=== PATIENT | female | born 1975 | race Caucasian/White ===

== ENCOUNTER 2022-02-13 08:31 | Emergency (ER) | payer BC ==
[2022-02-13] MEDS ORDERED: ASPIRIN CHEW 81 MG TABLET PO STA (08:42)
[2022-02-13] MEDS ORDERED: ACETAMINOPHEN 500 MG TABLET PO STA (08:44)
--- NOTE | 2022-02-13 08:44 | ED Physician Documentation ---
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 She does have a history of gastric bypass, elevated blood pressure without a formal diagnosis of hypertension, and no history of coronary disease. She presents with chest pain that awoke her from sleep at 3 AM this morning. Its a sharp pain at the upper end of the sternum that does not radiate. Worse with deep breathing and it is associated with shortness of breath. It does not worsen with exertion. There is no associated calf pain, pedal edema, association with eating, or recent travel. She is never had this before. Review of Systems Ten Systems: 10 systems reviewed and negative Constitutional: denies: Fever, Chills Cardiac: reports: Chest pain / pressure. denies: Palpitations Respiratory: reports: Dyspnea. denies: Cough PD PAST MEDICAL HISTORY - Present Medications Home Medications: Ambulatory Orders Medication Instructions Recorded Confirmed Omeprazole 40 mg PO DAILY #30 cap 02/13/22 - Allergies Allergies/Adverse Reactions: Allergies Allergy/AdvReac Type Severity Reaction Status Date / Time No Known Drug Allergies Allergy Verified 02/13/22 08:46 PD ED PE NORMAL - Vitals Vital signs reviewed: Yes - General General: Alert and oriented X 3, Other (She appears uncomfortable especially with deep breathing.) - HEENT HEENT: PERRL, EOMI - Neck Neck: Supple, no meningeal sign, No bony TTP - Cardiac Cardiac: RRR, No murmur - Respiratory Respiratory: No respiratory distress, Clear bilaterally - Abdomen Abdomen: Non tender - Derm Derm: Normal color, Warm and dry - Extremities Extremities: No edema, No calf tenderness / cord - Neuro Neuro: Alert and oriented X 3, Normal speech Results - Vitals Vitals: Vital Signs - 24 hr 02/13/22 02/13/22 02/13/22 08:33 08:48 09:18 Temperature 36.8 C Heart Rate 71 66 68 Respiratory 17 19 15 Rate Blood Pressure 149/98 H 141/88 H 120/86 H O2 Saturation 99 98 97 02/13/22 02/13/22 02/13/22 09:30 10:00 10:30 Temperature Heart Rate 62 68 63 Respiratory 18 15 15 Rate Blood Pressure 153/98 H 142/87 H 142/87 H O2 Saturation 98 98 96 Oxygen O2 Source Room air - EKG (time done) 0834 Rate: Rate (enter#) Rhythm: NSR Norton: RAD Intervals: Normal CO QRS: Low voltage Ischemia: Normal ST segments - Labs Labs: Laboratory Tests 02/13/22 02/13/22 02/13/22 08:52 08:52 08:52 WBC 6.8 RBC 4.61 Hgb 14.0 Hct 40.5 MCV 87.9 MCH 30.4 MCHC 34.6 RDW 14.8 Plt Count 345 MPV 10.3 Neut # (Auto) 3.1 Lymph # (Auto) 2.6 Richardson # (Auto) 0.5 Eos # (Auto) 0.5 Baso # (Auto) 0.1 Absolute Nucleated RBC 0.00 Nucleated RBC % 0.0 D-Dimer < 200.0 L Sodium 138 Potassium 4.0 Chloride 104 Carbon Dioxide 23 Anion Gap 11.0 BUN 16 Creatinine 0.4 Estimated GFR (MDRD) 170 Glucose 93 Calcium 8.6 Total Bilirubin 0.3 AST 28 ALT 31 Alkaline Phosphatase 48 Troponin I High Sens Total Protein 7.5 Albumin 3.8 Globulin 3.7 Albumin/Globulin Ratio 1.0 Lipase 46 02/13/22 08:52 WBC RBC Hgb Hct MCV MCH MCHC RDW Plt Count MPV Neut # (Auto) Lymph # (Auto) Richardson # (Auto) Eos # (Auto) Baso # (Auto) Absolute Nucleated RBC Nucleated RBC % D-Dimer Sodium Potassium Chloride Carbon Dioxide Anion Gap BUN Creatinine Estimated GFR (MDRD) Glucose Calcium Total Bilirubin AST ALT Alkaline Phosphatase Troponin I High Sens 2.6 Total Protein Albumin Globulin Albumin/Globulin Ratio Lipase - Rads (name of study) 1v cxr Radiology: EMP read contemporaneously (NAD) PD MEDICAL DECISION MAKING - ED course ED course: 46-year-old woman with history of gastric bypass presents with chest pain having awoken her from sleep at 3 AM this morning. She has an ancillary complaint for the last 2 years she has intermittent palpitations. No ectopy on the monitor here. She presents with chest pain, her ischemic work-up was negative and a D-dimer was done and negative as well. Given the history of gastric bypass I question the possibility of esophageal pathology/GERD and she was administered a GI cocktail with complete relief of her pain. Departure - Departure Disposition: 01 Home, Self Care Clinical Impression: Chest pain Qualifiers: Chest pain type: unspecified Qualified Code(s): R07.9 - Chest pain, unspecified Condition: Good Record reviewed to determine appropriate education?: Yes Instructions: ED GERD Prescriptions: Omeprazole 40 mg PO DAILY #30 cap Comments: As discussed, the test we did on your heart which included cardiac enzymes, and EKG, chest x-ray were all negative. The fact that you had significant improvement with the GI cocktail suggest that this is reflux causing your pain. For that we are starting omeprazole. Your pain will likely recur a little bit as the GI cocktail wears off, but then hopefully will get resolution after a day or 2 on the omeprazole. Return for new or worsening symptoms. Follow-up with your physician, next available appointment. Given your intermittent palpitations, reasonable to follow-up with your physician and discuss a Holter or event monitor type monitoring system to evaluate that. Forms: Activity restrictions
[2022-02-13 08:57] LABS: BASOPHILS # (AUTO) 0.1 10^3/uL (0.0-0.1); BASOPHILS % (AUTO) 1.8 %; EOSINOPHILS # (AUTO) 0.5 10^3/uL (0.0-0.7); EOSINOPHILS % (AUTO) 6.8 %; HCT - HEMATOCRIT 40.5 % (37.0-47.0); LYMPHOCYTES # (AUTO) 2.6 10^3/uL (1.5-3.5); LYMPHOCYTES % (AUTO) 38.5 %; MEAN CORPUSCULAR HEMOGLOBIN 30.4 pg (27.0-31.0); MEAN CORPUSCULAR HGB CONC 34.6 g/dL (32.0-36.0); MEAN CORPUSCULAR VOLUME 87.9 fL (81.0-99.0); MEAN PLATELET VOLUME 10.3 fL (7.9-10.8); MONOCYTES # (AUTO) 0.5 10^3/uL (0.0-1.0); MONOCYTES % (AUTO) 7.1 %; NEUTROPHILS # (AUTO) 3.1 10^3/uL (1.5-6.6); NEUTROPHILS % (AUTO) 45.7 %; PLT - PLATELET COUNT 345 10^3/uL (130-450); RED BLOOD COUNT 4.61 10^6/uL (4.20-5.40); RED CELL DISTRIBUTION WIDTH 14.8 % (12.0-15.0); WHITE BLOOD COUNT 6.8 x10^3/uL (4.8-10.8)
--- NOTE | 2022-02-13 09:10 | XRAY Report ---
PROCEDURE: Chest 1 View X-Ray INDICATIONS: Chest Pain TECHNIQUE: One view of the chest was acquired. COMPARISON: None FINDINGS: Surgical changes and devices: None. Lungs and pleura: No pleural effusions or pneumothorax. Lungs are clear. Mediastinum: Mediastinal contours appear normal. Heart size is normal. Bones and chest wall: No suspicious bony lesions. Overlying soft tissues appear unremarkable. IMPRESSION: No acute pulmonary process. Reviewed by: Gloria Gonzales MD on 02/13/2022 9:09 AM PDT Approved by: Gloria Gonzales MD on 02/13/2022 9:09 AM PDT Station ID: [id number]
[2022-02-13 09:21] LABS: ALBUMIN 3.8 g/dL (3.2-5.5); BILIRUBIN,TOTAL 0.3 mg/dL (0.2-1.0); CALCIUM 8.6 mg/dL (8.5-10.3); CREATININE 0.4 mg/dL (0.4-1.0); TOTAL PROTEIN 7.5 g/dL (6.7-8.2)
[2022-02-13] MEDS ORDERED: MAG HYDROX/AL HYDROX/SIMETH 30 ML UDC PO STA (09:56)
[2022-02-13] MEDS ORDERED: LIDOCAINE VISCOUS 2% 15 ML UDC MM STA (09:56)
[2022-02-13 10:07] VITALS: BP 142/87
== END 2022-02-13 10:42 | disposition home or self-care (01) ==
LOC: ED 08:31
DX: R07.9 Chest pain, unspecified (principal); R00.2 Palpitations
CPT/HCPCS: 36415; 71045; 80053; 83690; 84484; 85025; 85379; 93005; 99284; A9270

== ENCOUNTER 2022-08-25 23:44 | Emergency (ER) | payer BC, OTHER ==
[2022-08-25 23:51] VITALS: BP 130/90
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
== END 2022-08-26 00:10 | disposition home or self-care (01) ==
LOC: ED 23:44
DX: Z02.89 Encounter for other administrative examinations (principal); F10.10 Alcohol abuse, uncomplicated
CPT/HCPCS: 99281; 99283